=== PATIENT | female | born 1995 | race Caucasian/White ===

== ENCOUNTER → 2021-04-10 | Outpatient (CLI) | payer BC ==
[2015-09-04 17:40] VITALS: BP 130/76
[~2021-04-10] MED LIST: ONDA4TAB10 PO
--- NOTE | 2021-04-10 14:37 | RAD ---
EXAM: Thyroid sonogram. HISTORY: Thyromegaly. TECHNIQUE: Sonographic imaging of the thyroid was performed. COMPARISON: None. FINDINGS: The right thyroid lobe measures 4.1 x 1.5 x 1.1 cm. The left thyroid lobe measures 4.3 x 1. 7 x 1.2 cm. The thyroid isthmus measures 3 mm. No thyroid nodule is seen. IMPRESSION: Unremarkable thyroid sonogram. Electronically signed by: Luda Gar MD (04/10/2021 2:35 PM) [id number]
== END ==
LOC: US 13:07
PROVIDERS: ATTEND Physician Assistant
DX: E01.0 Iodine-deficiency related diffuse (endemic) goiter (principal)
CPT/HCPCS: 76536